=== PATIENT | female | born 1950 ===

== ENCOUNTER 2022-03-24 07:18 | Emergency (ER) | payer SELFPAY ==
[2022-03-24 07:59] VITALS: BP 157/77
--- NOTE | 2022-03-24 08:28 | XRay Report ---
XR chest routine 2V INDICATION / CLINICAL INFORMATION: Dyspnea. COMPARISON: None available. FINDINGS: SUPPORT DEVICES: None. HEART /PULMONARY VASCULATURE: No significant abnormality. LUNGS / PLEURA: No significant pulmonary or pleural abnormality. No pneumothorax. ADDITIONAL FINDINGS: S-shaped scoliotic curvature. No acute osseous findings. IMPRESSION: 1. No acute findings. Signer Name: Apolinar Joe MD Signed: 03/24/2022 8:24 AM Workstation Name: [id number]
[2022-03-24 08:50] LABS: Basophils % (Auto) 0.5 % (0.0-1.8); Eosinophils % (Auto) 0.3 % (0.0-4.3); Hematocrit 41.7 % (30.3-42.9); Hemoglobin 13.9 gm/dl (10.1-14.3); Lymphocytes # (Auto) 2.2 K/mm3 (1.2-5.4); Mean Corpuscular HGB Conc 33 % (30-34); Mean Corpuscular Volume 92 fl (79-97); Monocytes # (Auto) 0.4 K/mm3 (0.0-0.8); Platelet Count 223 K/mm3 (140-440); Red Blood Count 4.53 M/mm3 (3.65-5.03); Red Cell Distribution Width 13.2 % (13.2-15.2)
[2022-03-24 09:00] LABS: INR 0.91 (0.87-1.13)
[2022-03-24 09:01] LABS: Partial Thromboplastin Time 31.2 Sec. (24.2-36.6)
[2022-03-24 09:13] LABS: Alanine Aminotransferase 15 units/L (7-56); Albumin 4.5 g/dL (3.9-5); Blood Urea Nitrogen 7 mg/dL (7-17); Calcium 9.8 mg/dL (8.4-10.2); Hemolysis Index 11
[2022-03-24 09:15] LABS: BUN/Creatinine Ratio 10
--- NOTE | 2022-03-25 19:06 | Electrocardiograph Report ---
[facility] Test Date: 2022-03-24 Test Time: 08:07:00 Pat Name: KAREN JACKSON Department: Room: Gender: F Regroover: [id number] : 1950 Requested By: ED DOC Order Number: [id number] Reading MD: Namrata Combs Measurements Intervals [place] Rate: 87 P: 59 AR: 159 QRS: -30 QRSD: 83 T: 62 QT: 374 QTc: 448 Interpretive Statements Sinus rhythm Atrial premature complex Probable left atrial enlargement Left ventricular hypertrophy No previous ECG available for comparison Electronically Signed On 03-25-2022 19:05:53 EDT by Namrata Combs
== END 2022-03-25 08:48 | disposition left against medical advice (07) ==
LOC: ED 07:18
DX: R06.02 Shortness of breath (principal); Z53.21 Procedure and treatment not carried out due to patient leaving prior to being seen by health care provider
CPT/HCPCS: 36415; 71046; 80053; 84484; 85025; 85610; 85730; 93005